=== PATIENT | male | born 1950 | race Caucasian/White ===

== ENCOUNTER 2019-07-21 18:05 | Inpatient (IN) | payer BC ==
[~2019-07-21] VITALS: Ht 157.5 cm; Wt 82.6 kg
[2019-07-21 18:06] VITALS: BP 149/76
[2019-07-21] MEDS ORDERED: NEURONTIN 300300 M1 PO (18:27)
[2019-07-21 18:31] LABS: ABSOLUTE NEUTROPHILS 5.7 thou/uL (1.4-8.2); BASOPHILS 0.9 % (0.0-2.0); EOSINOPHILS 1.8 % (0.0-3.0); HEMATOCRIT 44.1 % (42.0-52.0); HEMOGLOBIN 15.1 gm/dL (14.0-18.0); MCHC 34.4 g/dL (28.0-37.0); MCV 90.2 fL (80.0-100.0); PLATELET COUNT 235 thou/uL (150-400); POLYS 62.3 % (36.0-66.0); RBC 4.89 mil/uL (4.50-6.00); RDW 13.2 % (10.5-14.5); WBC 9.1 thou/uL (4.0-11.0)
[2019-07-21 18:37] LABS: ANION GAP 9 mmol/L (7-16); BUN 22 mg/dL (7-18); CALCIUM 8.9 mg/dL (8.5-10.1); CHLORIDE 101 mmol/L (98-107); CO2 26 mmol/L (21-32); CREATININE 1.1 mg/dL (0.7-1.3); GLUCOSE 104 mg/dL (74-106); POTASSIUM 3.9 mmol/L (3.5-5.1); SODIUM 136 mmol/L (136-145)
[2019-07-21 18:46] LABS: TROPONIN-I <0.06 ng/mL (<0.06)
[2019-07-21 20:02] LABS: PROTIME 10.5 Seconds (9.3-11.4)
[2019-07-21 20:14] VITALS: BP 129/66
[2019-07-21] MEDS ORDERED: FLOMAX0.4 MG PO (20:45)
[2019-07-21 20:56] VITALS: BP 129/66
[2019-07-21 21:06] LABS: CHOLESTEROL 240 mg/dL (<200); HDL CHOLESTEROL 44 mg/dL (>40); LDL CHOLESTEROL 146 mg/dL (<100); TC:HDL 5.5 Ratio (Not establshd); TRIGLYCERIDE 252 mg/dL (<150); VLDL 50 mg/dL (<40)
[2019-07-21 21:15] LABS: SERUM ASSESSMENT Clear
[2019-07-21 21:49] VITALS: BP 124/71
[2019-07-22] VITALS (18 sets, daily range): BP systolic 90–124; BP diastolic 51–75
[2019-07-22 02:18] LABS: CALCIUM 9.1 mg/dL (8.5-10.1); CREATININE 1.1 mg/dL (0.7-1.3); POTASSIUM 4.1 mmol/L (3.5-5.1)
[2019-07-22 02:27] LABS: TROPONIN-I 0.23 ng/mL (<0.06)
--- NOTE | 2019-07-22 04:43 | NUR ---
PT WAS AN ADMIT FROM ER WHO WAS ADMITTED WITH CHEST PAIN. PT IS STABLE UPON UPON ARRIVAL TO THE FLOOR. DENIES ANY PAIN UPON ARRIVAL. HEPARIN DRIP STARTED. ADMISSION ASSESSMENT AND DOCUMENTATION COMPLETED. PT IS ALERT AND ORIENTED. PT IS STEADY AND AMBULATORY. SCHEDULED MEDS ADMINISTERED TO PT. CONTINUE TO MONITOR PT THROUGHOUT THE NIGHT. DENIES ANY FURTHER NEEDS AT THIS TIME.
--- NOTE | 2019-07-22 10:11 | NUR ---
ASSESSMENT CHARTED. PT ALERT AND ORIENTED. VSS. DENIED HAVING PAIN OR DISCOMFORT. RIGHT GROIN INCISION C/D/I. NO HEMATOMA NOTED. ORDERS GIVEN TO DISCHARGE PT TO HOME. DISCHARGE INSTRUCTIONS GIVEN TO PT. PT VERBERLISED UNDERSTANDING.
--- NOTE | 2019-07-22 18:08 | NUR ---
ASSESSMENT CHARTED. PT ALERT AND ORIENTED. VSS. HAD CARDIAC CATH THIS AM. RIGHT GROIN INCISION C/D/I. NO HEMATOMA NOTED. HAD LOW HR. DR RODRIGUEZ NOTIFIED. NO NEW ORDERS. WILL CONTINUE TO MONITOR.
--- NOTE | 2019-07-23 04:41 | NUR ---
ASSUMED PT CARE AT 1900. PT IS ALERT AND ORIENRED. PT IS AMBULATORY AND STEADY. GROIN SITE IS INTACT. NO SIGN OF BLEEDING OT HEMATOMA. ASSESSMENT COMPLETED AND DOCUMENTED. SCHEDULED MEDS ADMINISTERED TO PT. CALLS APPROPRIATELY. CONTINUE TO MONITOR PT.
[2019-07-23 04:45] VITALS: BP 116/63
[2019-07-23 05:32] LABS: HEMATOCRIT 42.5 % (42.0-52.0); HEMOGLOBIN 14.6 gm/dL (14.0-18.0); MCH 31.1 pg (26.0-34.0); MCHC 34.3 g/dL (28.0-37.0); MCV 90.6 fL (80.0-100.0); RBC 4.69 mil/uL (4.50-6.00); RDW 13.4 % (10.5-14.5)
[2019-07-23 06:03] LABS: ALBUMIN 3.4 g/dL (3.4-5.0); CALCIUM 8.5 mg/dL (8.5-10.1); CREATININE 1.1 mg/dL (0.7-1.3); TOTAL BILIRUBIN 0.8 mg/dL (<0.1-1.0); TOTAL PROTEIN 6.4 g/dL (6.4-8.2)
[2019-07-23 07:55] VITALS: BP 116/63
[2019-07-23 08:30] VITALS: BP 116/63
[2019-07-23] MEDS ORDERED: BRILINTA90 MG PO (09:08)
[2019-07-23] MEDS ORDERED: ASPIR 8181 MG PO (09:30)
[2019-07-23 10:27] VITALS: BP 116/63
--- NOTE | 2019-07-23 11:14 | NUR ---
PT CARE ASSUMED APPROXIMATELY 0700. PT ASSESSMENT CHARTED. PT MEDICATIONS CHARTED. PT DISCHARGED. TELE D/C'D. IV D/C'D. VSS.
--- NOTE | 2019-07-27 19:43 | CATHLAB ---
[facility] [address] [place] [address] INVASIVE PROCEDURE REPORT Name: DALTON GREENE Rob Room #: 208-P [facility] IN .R.#: [id number] Admission: 07/21/19 Attend Phys: Jona Ocampo MD Discharge: 07/23/19 Date of : 50 Report #: [id number] THIS REPORT FOR: cc: Amadeo Pascal MD, Michael D. MD Lammoglia, Francisco J. MD ~ APPROVED REPORT Study performed: 07/22/2019 10:39:14 Patient Details Patient Status: In-Patient Room #: The patient is a 69 year-old male Event Personnel Fede Umana Auriculotherapist, Evan Arceo RN, Luly Cerrato RTR, LIBRARY TECHNICAL ASSISTANTELIE Guardado, Nataliia Carter Monitor Procedures Performed Art Access - R femoral artery* Left Heart Cath w/or w/o Coronaries 5494160 [facility] [address]270 Initial Mod Sed Same Phys/QHP Gr5y 430577 12258 Mod Sed Same Phys/QHP Ea 302581 VALENCIA Place w/wo Plasty Single RCA 397981 Hemostasis w/ Mynx, supervision of conscious sedation Indication Non-STEMI (>12 hrs to = 24 hrs), Chest pain Risk Factors Hypercholesterolemia, Diabetes Procedure Narrative The Right Groin^ was infiltrated with 1% Lidocaine subcutaneous anesthesia. A 4FR JL 5.0 #[id number] sheath was inserted into the RFA 4F^. Coronary angiography was performed using coronary diagnostic catheters. The right coronary system was accessed and visualized with a JR4 catheter. The left coronary system was accessed and visualized with a JL5 catheter. The left ventricle was accessed and visualized with a ANGLE PIG catheter. Left ventriculogram was performed in 30 degree projection. Closure device was deployed with a Fr MYNXGRIP 6/7F #[id number]. The patient tolerated the procedure well and there were no complications associated with the procedure. There was no hematoma. [facility] [place] [address] INVASIVE PROCEDURE REPORT Name: DALTON GREENE Room #: 208-P [facility] IN [facility]#: [id number] Admission: 07/21/19 Attend Phys: Jona Ocampo MD Discharge: 07/23/19 Date of : 50 Report #: [id number] Intraoperative Conscious Sedation Sedation start time: 1104 Case end Time: 1220 Versed 3 mg Fluoro Time: 11.10 minutes Dose: DAP 18577.00 cGycm2 2098 mGy Contrast Type and Amount: 115 Coronary Angiography The patient's coronary anatomy is right dominant. Diagnostic Cath Left Main small to moderate caliber vessel of normal origin bifurcates left anterior descending left circumflex.I'll irregularities are noted but no significant obstructive lesions LAD small-calibera three-vessel which appears to be heavily calcified on fluoroscopy. He continues in the anterior interventricular sulcus giving rise to septal and diagonal branch after which there is a hazy region it appears to be an eccentric lesion of no more than 50-60% in any one view.the vessel is 1.5-2 mm in diameter at most throughout its course and it tapers to smaller towards the apex. Luminal irregularities are noted as it continues in the anterior interventricular sulcus terminatingand posterior infero-apical portion of the left ventricle Diagonal 1 string-like vessel without significant lesions noted Diagonal 2 string-like vessel without any flow-limiting lesions Circumflex small-caliber vessel coursing in the AV groove posteriorly giving rise to 3 marginal branches all her which are less than 1.5 mm in diameter. There is diffuse irregularities noted throughout the entire course of the circumflex proper. There is evidence of distal right coronary artery filling via left to right circumflex collaterals OM1 small-caliber vessel with diffuse irregularities OM2 diminutive vessel Right Coronary all caliber dominant vessel which is is of normal origin. There is a small valentine's crook deformity proximally as it proceeds in the AV groove posteriorly giving rise to RV marginal branches and right atrial branches. At the crux of the heart and gives rise to a pair posterior descending artery which are small in size. Immediately beyond this origin involving the distal right coronary artery the RCA narrows to a string after which he reconstitutes giving rise toa small posterior wall branches and a [facility] [address] [place] [address] INVASIVE PROCEDURE REPORT Name: DALTON GREENE Room #: 208-P [facility] IN ..#: [id number] Admission: 07/21/19 Attend Phys: Jona Ocampo MD Discharge: 07/23/19 Date of : 50 Report #: [id number] larger posterior lateral branch.post dilatation and status 19 this narrowed region is wide the patent and the vessel appears to be larger in size. No loss of side branch or other abnormalities are noted R PDA dual posterior descending arteries are small in caliber without high-grade lesions present Left Ventriculography Left Ventriculography was not performed. Hemodynamics The aortic pressure is 113/63 mmHg with a mean of 84 mmHg. The left ventricular pressure is 116/11 mmHg with a mean of mmHg. PCI Technique in view of the amount of myocardium at risk and the distal right circulation was felt that revascularization. Adenosine was a reasonable approach. Utilizing a 6 Dominican system that was exchanged with a 4 Dominican diagnostic system a standard JR 4 guide was engaged with a right coronary ostium. A 0.014 wire was advanced into the distal posterior lateral branch and a 1.5 mm was taken to 2 mm. Subsequent to this the vessel was improved with increasing flow and a 2.0 mm x 15 mm stent was then positioned and deployed to 18 corby. The vessel is widely patent is no loss of side branches no vessel entrapment. The patient complained of significant chest discomfort without any EKG or hemodynamic abnormalities. This resolved once taken off the catheter lab table and onto his bed. Patient tolerated procedure well there were no complications with excellent result and CHUCK 3 flow distal to the previously high-grade lesion PCI Technique Lesion Percutaneous coronary intervention was performed on the mistal right coronary artery. A LAUNCHER 6FR JR 4 #[id number] Guide Catheter was used to engage the ostium. A Luge Wire .014 x 182CM #[id number] Interventional Guidewire was used to cross the lesion. BALLOON DILATION A Balloon catheter Sprinter OTW 1.5 x 10 #[id number] was inserted and inflated up to 15.00atm for 30seconds. Additional Inflation: 15atm for 14seconds. STENT DEPLOYMENT A stent RESOLUTE WILLIAMS OTW 2.0 X 12 #[id number] was inserted and inflated up to 12.00atm for 13seconds. Additional Inflation: 18atm for 13seconds. [facility] [employer] [place] [address] INVASIVE PROCEDURE REPORT Name: DALTON GREENE Room #: 208-P [facility] IN M.R.#: [id number] Admission: 07/21/19 Attend Phys: Jona Ocampo MD Discharge: 07/23/19 Date of : 50 Report #: [id number] Conclusion 1. Coronary artery disease multivessel with high-grade distal right coronary artery 2. Abnormal hemodynamics with elevated left ventricular end-diastolic pressure 3. Successful percutaneous S luminal coronary angioplasty and stenting of the distal right coronary artery with a 2.0 x 15 mm VALENCIA Medtronic stent taken to 18 corby Recommendations Cardiac Risk Reduction Program Brilinta was given in the Auriculotherapist post procedure issues will proceed per standard post stenting protocol with dual antiplatelet therapy and anti-ischemic regimen for the left coronary system coronary artery disease <ELECTRONICALLY SIGNED> By: Fede Umana MD 07/27/191941 41 41 Fede Umana MD /INF
--- NOTE | 2019-08-06 12:01 | EKG ---
[facility] [place] [address] [address] ELECTROCARDIOGRAM REPORT Name: DALTON GREENE Rob Room #: 208-P [facility] IN M.R.#: [id number] Admission: 07/21/19 Attend Phys: Jona Ocampo MD Discharge: 07/23/19 Date of : 50 Report #: [id number] THIS REPORT FOR: cc: Amadeo Pascal MD, Michael D. 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: [employer] : 1950 Requested By: Amadeo Andres Order Number: [id number] MD: Pablo Dubose Measurements Intervals [place] Rate: 70 P: 18 [place]: 191 QRS: -5 QRSD: 96 T: 25 QT: 377 QTc: 407 Interpretive Statements Sinus rhythm Probable anteroseptal infarct, old Compared to ECG 02/15/2007 12:22:28 Septal Q waves are now present Electronically Signed On 07-22-2019 9:05:19 CDT by Pablo Dubose [email or web address] <ELECTRONICALLY SIGNED> By: Pablo Dubose MD, [facility] 07/22/19 0905 180 180 Pablo Dubose MD, [facility] /EPI
--- NOTE | 2019-08-06 12:01 | EKG ---
[facility] [place] [address] [place] [address] ELECTROCARDIOGRAM REPORT Name: DALTON GREENE Room #: 208-[facility] IN M.R.#: [id number] Admission: 07/21/19 Attend Phys: Jona Ocampo MD Discharge: 07/23/19 Date of : 50 Report #: [id number] THIS REPORT FOR: cc: Amadeo Pascal MD, Michael D. 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1950 Requested By: Amadeo Andres Order Number: [id number] MD: Pablo Dubose Measurements Intervals [place] Rate: 64 P: -1 NM: 199 QRS: -12 QRSD: 88 T: 3 QT: 394 QTc: 407 Interpretive Statements Sinus rhythm Inferior infarct, old Compared to ECG 02/15/2007 12:22:28 Septal Q waves are no longer present Electronically Signed On 07-22-2019 9:06:11 CDT by Pablo Dubose [email or web address] <ELECTRONICALLY SIGNED> By: Pablo Dubose MD, [facility] 07/22/19905 37 37 Pablo Dubose MD, [facility] /EPI
--- NOTE | 2019-08-06 12:02 | EKG ---
[facility] [place] [address] ELECTROCARDIOGRAM REPORT Name: DALTON GREENE Room #: 208-P [facility] IN M.R.#: [id number] Admission: 07/21/19 Attend Phys: Jona Ocampo MD Discharge: 07/23/19 Date of : 50 Report #: [id number] THIS REPORT FOR: cc: Amadeo Pascal MD, Michael D. 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
--- NOTE | 2019-08-06 12:04 | EKG ---
[facility] [place] [address] ELECTROCARDIOGRAM REPORT Name: ANGELICA GREENEHermes Rivas Room #: 208-P [facility] IN M.R.#: [id number] Admission: 07/21/19 Attend Phys: Jona Ocampo MD Discharge: 07/23/19 Date of : 50 Report #: [id number] THIS REPORT FOR: cc: Amadeo Pascal MD, Michael D. MD Couchonnal, Luis F. 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
== END 2019-07-23 11:12 | disposition home or self-care (01) | DRG 247 ==
LOC: ER 18:05 → 2N 19:35 → EROBS 19:35 → 2N 21:04
PROVIDERS: Emergency Medicine; Internal Medicine; Nurse Practitioner Family; ADMIT Hospitalist
DX: I21.4 Non-ST elevation (NSTEMI) myocardial infarction (principal); G62.9 Polyneuropathy, unspecified; E78.5 Hyperlipidemia, unspecified; N40.0 Benign prostatic hyperplasia without lower urinary tract symptoms; K21.9 Gastro-esophageal reflux disease without esophagitis; I10 Essential (primary) hypertension; I25.110 Atherosclerotic heart disease of native coronary artery with unstable angina pectoris; Z82.49 Family history of ischemic heart disease and other diseases of the circulatory system; Z79.899 Other long term (current) drug therapy; Z88.0 Allergy status to penicillin; Z98.1 Arthrodesis status; Z83.3 Family history of diabetes mellitus
CPT/HCPCS: 10081